=== PATIENT | female | born 1990 | race Caucasian/White ===

== ENCOUNTER 2022-07-27 20:22 | Emergency (ER) | payer BC, MEDICAID, SELFPAY ==
[2022-07-27 20:28] VITALS: BP 150/79; PULSE 116; RESP 16; TEMP 36.8; O2SAT 96; BMI 29.9
--- NOTE | 2022-07-27 20:37 | XRR_ITS ---
PROCEDURE INFORMATION: Exam: XR Chest Exam date and time: 07/27/2022 9:45 PM Age: 32 years old Clinical indication: Pain; Chest pressure; Additional info: Cp TECHNIQUE: Imaging protocol: Radiologic exam of the chest. Views: 1 view. COMPARISON: CR XR chest 1V [id number] 07/10/2018 1:13 PM FINDINGS: Lungs: Probable emphysema. Lungs are clear. No consolidation. Pleural spaces: Mild apical pleural scarring. No pneumothorax. No pleural effusion. Heart/Mediastinum: Unremarkable. No cardiomegaly. Bones/joints: Unremarkable. XR/XR chest 1V portable [id number] IMPRESSION: No acute finding.
--- NOTE | 2022-07-27 20:38 | ECG_ITS ---
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 Measurements Intervals [place] Rate: 112 P: 76 WA: 128 QRS: 79 QRSD: 90 T: 55 QT: 352 QTc: 481 Interpretive Statements SINUS TACHYCARDIA LEFT ATRIAL ENLARGEMENT [-0.15mV P-WAVE IN V1/V2] NONSPECIFIC T-WAVE ABNORMALITY Compared to ECG 07/10/2018 12:46:51 Atrial abnormality now present Sinus bradycardia no longer present Short [place] interval no longer present Possible ischemia no longer present T-wave abnormality still present Electronically Signed On 07-27-2022 22:00:15 CDT by Mario Velasco M.D. [id number]
--- NOTE | 2022-07-27 21:36 | ED_ITS ---
HPI - Chest Pain General: Chief Complaint: Chest Pain Stated Complaint: ABD Pain And Chest Pain Time Seen by Provider: 07/27/22 21:24 Source: patient Mode of arrival: ambulatory Limitations: no limitations History of Present Illness: 32-year-old female who states she been having chest pain and some palpitations over the last week. States been a sharp pain in the center of her chest she had some shortness of breath as well. She denies any worsening improving factors denies any vomiting or diarrhea. States she was seen at another facility had blood work everything was normal. She states her pain is continued though. Associated symptoms: Reports dyspnea; Deny abdominal pain, fever(s), nausea or vomiting Review of Systems Const: Denies: fever(s), chills, body aches or change in appetite Eyes: Denies: blurry vision or eye discomfort ENMT: Denies: throat pain or dental pain Card: Reports: chest pain Resp: Reports: dyspnea GI: Denies: abdominal pain, nausea, vomiting or diarrhea : Denies: dysuria Musc: Denies: neck pain or back pain Skin/Breast: Denies: rash Neuro: Denies: headache(s) Psych: Denies: depression Geoff/Lymph: Denies: easy bruising All/Imm: Denies: urticaria [facility] Female Reproductive History: Date of last menstrual period: 07/05/22 Physical Exam Const: COMMON NORMALS: no acute distress, patient oriented x3 and healthy appearing HENMT: COMMON NORMALS: normocephalic and atraumatic HEAD & SCALP: normocephalic and atraumatic Eye: COMMON NORMALS: Equal, round and reactive pupils present and EOMs intact bilaterally PUPIL: Yes Equal, round and reactive pupils present Neck/C-Spine: COMMON NORMALS: full ROM and supple Chest: COMMONS NORMALS: normal inspection of the chest and normal palpation of entire chest wall Resp: COMMON NORMALS: normal respiratory effort, No retractions, No use of accessory muscles and clear to auscultation bilaterally AUSCULTATION: clear to auscultation bilaterally Cardio: COMMON NORMALS: regular rhythm and No murmurs present (Cardio) RATE: tachycardic RHYTHM: regular rhythm GI: COMMON NORMALS: Normal to inspection, nondistended, normoactive bowel sounds present, Soft to palpation, non-tender and no masses PALPATION: Yes Soft to palpation Extremity: COMMON NORMALS: normal to inspection and full ROM Neuro: COMMON NORMALS: patient oriented x3, moves all extremities and no focal motor deficits Psych: COMMON NORMALS: mental status grossly normal, Normal thought process p resent and cooperative THOUGHT PROCESS: Normal thought process present Skin: COMMON NORMALS: no rashes or lesions noted and no wounds GENERAL SKIN EXAM: no rashes or lesions noted Course Vital Signs: Vital signs: Vital Signs Temperature 98.2 F 07/27/22 20:28 Pulse Rate 116 H 07/27/22 20:28 Respiratory Rate 18 07/27/22 21:51 Blood Pressure 150/79 07/27/22 20:28 Pulse Oximetry 96 07/27/22 20:28 Oxygen Delivery Me thod 07/27/22 20:28 MDM - Chest Pain Medical Decision Making Patient presents for chest pains atypical in nature CTA is normal no PE troponins normal she stable for discharge she is to follow-up PCP and return if worsening. Lab Data : 07/27/22 21:36 07/27/22 21:36 Radiology Impressions Chest X-Ray 07/27/22 20:37 IMPRESSION: No acute finding. Chest CTA 07/27/22 22:04 IMPRESSION: 1. No evidence for pulmonary embolus. 2. Left renal calculi. COMMENTS: Consistent with the [place] [employer]'s Incidental Findings Committee white paper (J Am Kenny Radiol 2018): Any incidental renal lesion less than 1 cm or classified as too small to characterize, or any incidental cystic renal lesion characterized as simple-appearing, is likely benign. No follow-up imaging is recommended for these lesions per consensus recommendations based on imaging criteria. Laboratory Results WBC 7.3 10^3/uL (4.0-10.0) 07/27/22 21:36 RBC 5.28 10^6/uL (4.1-5.3) 07/27/22 21:36 Hgb 15.7 g/dL (11.5-15.3) H 07/27/22 21:36 Hct 46.8 % (37.0-47.0) 07/27/22 21:36 MCV 88.6 fl (81-99) 07/27/22 21:36 MCH 29.7 pg (28.0-34.0) 07/27/22 21:36 MCHC 33.5 g/dL (30.0-36.0) 07/27/22 21:36 RDW 13.7 % (12.1-15.1) 07/27/22 21:36 Plt Count 296 10^3/cmm (130-400) 07/27/22 21:36 MPV 10.0 fL (7.4-10.4) 07/27/22 21:36 Neut % (Auto) 55.1 % 07/27/22 21:36 Lymph % (Auto) 32.2 % 07/27/22 21:36 [place] % (Auto) 9.7 % 07/27/22 21:36 Eos % (Auto) 2.6 % 07/27/22 21:36 Baso % (Auto) 0.3 % 07/27/22 21:36 Neut # (Auto) 4.04 10^3/uL (1.8-7.7) 07/27/22 21:36 Lymph # (Auto) 2.4 10^3/uL (0.8-4.8) 07/27/22 21:36 [place] # (Auto) 0.7 10^3/uL (0.2-0.9) 07/27/22 21:36 Eos # (Auto) 0.2 10^3/uL (0.0-0.8) 07/27/22 21:36 Baso # (Auto) 0.0 10^3/uL (0.0-0.1) 07/27/22 21:36 Nucleated RBC % (auto) 0 % 07/27/22 21:36 Nucleated RBCs # 0.0 /100WBC 07/27/22 21:36 D-Dimer 0.74 ug/mIFEU (0-0.59) H 07/27/22 21:36 Sodium 136 mmol/L (136-145) 07/27/22 21:36 Potassium 3.5 mmol/L (3.5-5.1) 07/27/22 21:36 Chloride 100 mmol/L (98-107) 07/27/22 21:36 Carbon Dioxide 25 mmol/L (22-29) 07/27/22 21:36 Anion Gap 14.5 (5-19) 07/27/22 21:36 BUN 4 mg/dL (6-20) L 07/27/22 21:36 Creatinine 0.5 mg/dL (0.5-0.9) 07/27/22 21:36 GFR Calculation 142.1 mL/min (90-130) H 07/27/22 21:36 Glucose 144 mg/dL (65-115) H 07/27/22 21:36 Calculated Osmolality 281 mOsm/kg (285-295) L 07/27/22 21:36 Calcium 9.9 mg/dL (8.5-10.5) 07/27/22 21:36 Total Bilirubin 0.4 mg/dL (0.15-1.2) 07/27/22 21:36 AST 16 U/L (0-32) 07/27/22 21:36 ALT 16 U/L (0-33) 07/27/22 21:36 Alkaline Phosphatase 80 U/L (35-105) 07/27/22 21:36 Troponin T Baseline 6 ng/L (0-10) 07/27/22 21:36 Total Protein 7.5 g/dL (6.6-8.7) 07/27/22 21:36 Albumin 3.9 g/dL (3.5-5.2) 07/27/22 21:36 Globulin 3.6 g/dL (1.3-4.6) 07/27/22 21:36 Lipase 26 U/L (13-60) 07/27/22 21:36 HCG, Qual Negative (Negative) 07/27/22 21:36 Urine Color Dark yellow (Yellow) 07/27/22 21:35 Urine Appearance Clear (CLEAR) 07/27/22 21:35 Urine pH 6 (5-7) 07/27/22 21:35 Ur Specific [place] 1.015 (1.005-1.030) 07/27/22 21:35 Urine Protein Trace (Negative) 07/27/22 21:35 Urine Glucose (UA) Norm (Normal) 07/27/22 21:35 Urine Ketones 1+ (Negative) H 07/27/22 21:35 Urine Blood Neg (Negative) 07/27/22 21:35 Urine Nitrate Negative (Negative) 07/27/22 21:35 Urine Bilirubin 1+ (Negative) H 07/27/22 21:35 Urine Urobilinogen 1 mg/dL (Negative) H 07/27/22 21:35 Ur Leukocyte Esterase Negative (Negative) 10/07/22 21:35 Urine RBC 0-4 /hpf (0-2) H 07/27/22 21:35 Urine WBC 0-4 /hpf (0-5) H 07/27/22 21:35 Ur Squamous Epith Cells 15-25 /hpf (0-5) H 07/27/22 21:35 Calcium Oxalate Crystal 5-10 /hpf H 07/27/22 21:35 Amorphous Sediment Not Reportable 07/27/22 21:35 Urine Bacteria Trace /hpf (NONE) 07/27/22 21:35 Urine Mucus 2+ /hpf 07/27/22 21:35 EKG Data EKG 1: I personally reviewed and interpreted this EKG as follows: EKG interpretation date: 07/27/22 EKG interpretation time: 20:38 Interpretation: sinus tach hr [address] or t wave abnormalities qrs 90 qtc 418 Discharge Plan Discharge Patient Disposition: Home Clinical Impression: Chest pain Condition: Stable Prescriptions: New Naprosyn 500 mg tablet 500 mg PO BID PRN (Reason: pain) Qty: 20 0RF Discharge Orders: Discharge ED (Routine); Ordered 07/27/22 Ordered By: Stephanie Benedict Referrals: Nick Granados [Primary Care Provider] - 1-3 days Discharge Diet: Advance as tolerated Discharge Activity: Resume usual activity Patient Instructions: Chest Pain (ED) Coding Level of Care Code ED Cap And Stud Machine Operator for Chg Fwd Exam Comprehensive
[2022-07-27 21:45] LABS: Basophils % 0.3 %; Eosinophils # 0.2 10^3/uL (0.0-0.8); Eosinophils % 2.6 %; Hematocrit 46.8 % (37.0-47.0); Hemoglobin 15.7 g/dL (11.5-15.3); Lymphocytes # 2.4 10^3/uL (0.8-4.8); Lymphocytes % 32.2 %; Mean Corpuscular HGB Conc 33.5 g/dL (30.0-36.0); Mean Corpuscular Hemoglobin 29.7 pg (28.0-34.0); Mean Corpuscular Volume 88.6 fl (81-99); Monocytes # 0.7 10^3/uL (0.2-0.9); Monocytes % 9.7 %; Neutrophils # 4.04 10^3/uL (1.8-7.7); Neutrophils % 55.1 %; Nucleated Red Blood Cells % 0 %; Platelet Count 296 10^3/cmm (130-400); Red Blood Count 5.28 10^6/uL (4.1-5.3); Red Cell Distribution Width 13.7 % (12.1-15.1); White Blood Count 7.3 10^3/uL (4.0-10.0)
[2022-07-27 21:51] VITALS: RESP 18
[2022-07-27] MEDS: ondansetron 2 mg/ML SDV 2 mL 4 MG IVP (21:51)
[2022-07-27] MEDS: HYDROmorphone 1 mg/mL INJ 1 mL 0.5 MG IVP (21:51)
[2022-07-27 21:55] LABS: HCG, Serum Qual Negative (Negative)
[2022-07-27 22:00] LABS: D Dimer 0.74 ug/mIFEU (0-0.59)
[2022-07-27 22:03] LABS: Alanine Aminotransferase 16 U/L (0-33); Albumin Level 3.9 g/dL (3.5-5.2); Alkaline Phosphatase 80 U/L (35-105); Anion Gap 14.5 (5-19); Aspartate Amino Transferase 16 U/L (0-32); Blood Urea Nitrogen 4 mg/dL (6-20); Calcium 9.9 mg/dL (8.5-10.5); Carbon Dioxide 25 mmol/L (22-29); Chloride 100 mmol/L (98-107); Creatinine Clr Calc Pharmacy 151.1175; Globulin 3.6 g/dL (1.3-4.6); Glomerular Filtration Rate 142.1 mL/min (90-130); Glucose 144 mg/dL (65-115); Lipase 26 U/L (13-60); Osmolality Calculated 281 mOsm/kg (285-295); Potassium 3.5 mmol/L (3.5-5.1); Sodium 136 mmol/L (136-145); Total Bilirubin 0.4 mg/dL (0.15-1.2); Total Protein 7.5 g/dL (6.6-8.7)
--- NOTE | 2022-07-27 22:04 | CTR_ITS ---
PROCEDURE INFORMATION: Exam: CTA Chest With Contrast Exam date and time: 07/27/2022 10:34 PM Age: 32 years old Clinical indication: Shortness of breath; Additional info: SOB TECHNIQUE: Imaging protocol: Computed tomographic angiography of the chest with contrast. 3D rendering (Not supervised by radiologist): MIP and/or 3D reconstructed images were created by the technologist. Radiation optimization: All CT scans at this facility use at least one of these dose optimization techniques: automated exposure control; mA and/or kV adjustment per patient size (includes targeted exams where dose is matched to clinical indication); or iterative reconstruction. Contrast material: OMNIPAQUE 350; Contrast volume: 95 ml; Contrast route: INTRAVENOUS (IV); COMPARISON: CR (CHEST, ) 07/27/2022 9:45 PM RADIATION DOSE METRICS: Total DLP (mGy-cm): 320.82 FINDINGS: Pulmonary arteries: Normal. No pulmonary emboli. Aorta: Unremarkable. No aortic aneurysm. No aortic dissection. Lungs: Centrilobular emphysema. The lungs are otherwise clear. No consolidation. Pleural spaces: Unremarkable. No pneumothorax. No pleural effusion. Heart: Unremarkable. No cardiomegaly. No pericardial effusion. Lymph nodes: Unremarkable. No enlarged lymph nodes. Kidneys and ureters: Small right renal cyst with thin wall calcifications, Hounsfield units less than 20. No follow-up imaging recommended. Small nonobstructing left renal calculi. Bones/joints: Mild thoracic curvature. No fracture identified. Soft tissues: Unremarkable. CT/CT angio chest PE protcl [id number] IMPRESSION: 1. No evidence for pulmonary embolus. 2. Left renal calculi. COMMENTS: Consistent with the [place] [employer]'s Incidental Findings Committee white paper (J Am Kenny Radiol 2018): Any incidental renal lesion less than 1 cm or classified as too small to characterize, or any incidental cystic renal lesion characterized as simple-appearing, is likely benign. No follow-up imaging is recommended for these lesions per consensus recommendations based on imaging criteria.
[2022-07-27] MEDS: iohexol 350 mg/mL 100 mL Btl IV (22:37)
--- NOTE | 2022-07-27 23:21 | ECG_ITS ---
[facility] Test Date: 2022-07-27 Pat Name: Maryana Veronica Department: Room: Gender: Female Respiratory Therapist Assistant: : 1990 Requested By: Stephanie Benedict Order Number: [id number] Kassidy MD: Joy Camara M.D. Measurements Intervals [place] Rate: 70 P: 59 ME: 135 QRS: 76 QRSD: 83 T: 66 QT: 380 QTc: 412 Interpretive Statements SINUS RHYTHM Compared to ECG 07/27/2022 20:38:28 Sinus tachycardia no longer present Atrial abnormality no longer present T-wave abnormality no longer present Electronically Signed On 07-28-2022 19:27:24 CDT by Joy Camara M.D. [id number]
[2022-07-27 23:31] LABS: Urine Color Dark yellow (Yellow)
[2022-07-27 23:32] LABS: Add Urine Microscopic? YES; Bilirubin Urine 1+ (Negative); Blood Urine Neg (Negative); Glucose Urine UA Norm (Normal); Ketones Urine 1+ (Negative); Leukocyte Esterase Urine Negative (Negative); Nitrate Urine Negative (Negative); Protein Urine Trace (Negative); Specific Gravity, Urine 1.015 (1.005-1.030); Urine Appearance Clear (CLEAR); Urobilinogen Urine 1 mg/dL (Negative); pH Urine 6 (5-7)
[2022-07-27 23:33] LABS: Add Urine Culture? No; Bacteria Urine TRACE /hpf; Mucus Urine 2+ /hpf; RBC Urine 0-4 /hpf (0-2); Squamous Epithelial Cell Urine 15-25 /hpf (0-5); WBC Urine 0-4 /hpf (0-5)
[2022-07-27 23:41] LABS: Troponin(5th) Baseline 6 ng/L (0-10)
[2022-07-28] VITALS: BP 129/84; PULSE 88; RESP 18; O2SAT 96
== END 2022-07-28 00:02 | disposition home or self-care (01) ==
PROVIDERS: Emergency Provider Emergency Medicine; PCP Family Medicine
DX: R07.9 Chest pain, unspecified (principal)
CPT/HCPCS: 71045; 71275; 80053; 81001; 83690; 84484; 84703; 85025; 85378; 93005; 96374; 96375; 99285; J1170; J2405; Q9967

== ENCOUNTER → 2025-06-17 09:33 | Outpatient (BNVA) | payer BC, MEDICAID, SELFPAY | PROVIDERS: PCP Family Medicine; Visit Provider Obstetrics & Gynecology | DX: Z12.4 Encounter for screening for malignant neoplasm of cervix (principal) | CPT/HCPCS: 87624 ==